=== PATIENT | male | born 1975 | race Caucasian/White ===

== ENCOUNTER 2020-07-07 07:00 | Emergency (ER) | payer BC ==
[~2020-07-07] VITALS: Ht 188 cm; Wt 136.4 kg
[2020-07-07 07:06] VITALS: Ht 188 cm; Wt 136.4 kg
[2020-07-07] MEDS ORDERED: PLAVIX75 MG PO (07:13)
[2020-07-07] MEDS ORDERED: DILAUDID4 MG PO (07:14)
[2020-07-07] MEDS ORDERED: LOSARTAN-HCTZ1 EAC1 PO (07:14)
[2020-07-07] MEDS ORDERED: ELIQUIS5 MG PO ×2 (07:14→07:15)
[2020-07-07] MEDS ORDERED: LYRICA50 MG PO (07:15)
[2020-07-07 07:36] LABS: BASOPHILS 0.1 % (0-2); EOSINOPHILS 0.1 % (0-7); HEMATOCRIT 21.3 % (42.0-54.0); IMMATURE GRANULOCYTES 0.6 % (0-5); LYMPHOCYTES 9.5 % (15-50); MCHC 32.4 g/dL (31.0-37.0); MCV 101.9 fL (80.0-100.0); MEAN PLATELET VOLUME 11.1 fL (7.4-10.4); MONOCYTES 9.7 % (2-11); PLATELET COUNT 154 10x3/uL (130-400); RBC 2.09 10x6/uL (4.20-6.10); RDW 15.2 % (11.5-14.5)
[2020-07-07 07:39] LABS: HEMOGLOBIN 6.9 g/dL (13.5-17.5)
[2020-07-07 08:09] LABS: ALBUMIN 2.6 g/dL (3.4-5.0); BILIRUBIN - TOTAL 2.11 mg/dL (0.2-1.3); CALCIUM 8.7 mg/dL (8.5-10.1); CARBON DIOXIDE 26.2 mmol/L (21.0-32.0); CREATININE - SERUM 8.4 mg/dL (0.6-1.3); PROTEIN - SERUM 6.4 g/dL (6.4-8.2)
[2020-07-07 08:10] LABS: ANION GAP 21.3 mmol/L (8-16); POTASSIUM - SERUM 6.5 mmol/L (3.5-5.1); TROPONIN-I 0.06 ng/mL (0.000-0.060)
[2020-07-07 08:19] LABS: INR 3.24 (0.85-1.17); PROTIME 32.5 SECONDS (11.6-15.0)
[2020-07-07 08:39] LABS: BILIRUBIN NEGATIVE (NEGATIVE); KETONE SMALL mg/dL (NEGATIVE); NITRITE NEGATIVE (NEGATIVE); UROBILINOGEN NORMAL mg/dL (< 2); WHITE CELLS - URINE RARE HPF (0-1)
[2020-07-07 08:50] LABS: UDS - AMPHET NEGATIVE QUAL (NEGATIVE); UDS - BARB NEGATIVE QUAL (NEGATIVE); UDS - BENZO NEGATIVE QUAL (NEGATIVE); UDS - COCAINE NEGATIVE QUAL (NEGATIVE); UDS - OPIATE POSITIVE QUAL (NEGATIVE); UDS - PCP NEGATIVE QUAL (NEGATIVE); UDS - THC NEGATIVE QUAL (NEGATIVE)
[2020-07-07 09:25] VITALS: BP 115/40
== END 2020-07-07 09:25 | disposition other institution (70) ==
LOC: D.ER 07:00
PROVIDERS: Family Medicine
DX: K92.2 Gastrointestinal hemorrhage, unspecified (principal); R94.5 Abnormal results of liver function studies; K85.90 Acute pancreatitis without necrosis or infection, unspecified; N17.9 Acute kidney failure, unspecified; R41.82 Altered mental status, unspecified; D50.0 Iron deficiency anemia secondary to blood loss (chronic); K92.0 Hematemesis; E72.20 Disorder of urea cycle metabolism, unspecified; E80.6 Other disorders of bilirubin metabolism; E87.5 Hyperkalemia; I95.9 Hypotension, unspecified; R09.02 Hypoxemia; D72.829 Elevated white blood cell count, unspecified; G93.41 Metabolic encephalopathy; F11.90 Opioid use, unspecified, uncomplicated; R00.0 Tachycardia, unspecified; I83.009 Varicose veins of unspecified lower extremity with ulcer of unspecified site; R11.2 Nausea with vomiting, unspecified; R79.89 Other specified abnormal findings of blood chemistry; I10 Essential (primary) hypertension; Z72.0 Tobacco use